=== PATIENT | male | born 1950 | race Caucasian/White ===

== ENCOUNTER 2017-03-27 22:31 | Emergency (ER) | payer MEDICARE, BC ==
[2017-03-27] MEDS ORDERED: HYDROCODONE/APAP 5/325MG TABLET PO ONE (23:05)
[2017-03-27] MEDS ORDERED: Diph,Pert(Acell),Tet Vac 0.5 ML SYR IM ONE (23:35)
--- NOTE | 2017-03-27 23:58 | Emergency Department Record ---
History of Present Illness - General Chief Complaint: Laceration(s) Stated Complaint: FELL,STICK THRU HIS ARM Time Seen by Provider: 03/27/17 22:38 Source: Patient Mode of Arrival: Ambulatory Limitations: No limitations - History of Present Illness Initial Commments: pt fell on top of wood and got 2 very large pcs of wood thru his arm. he removed one and came here w 6inch piece still in arm. Onset/Timin -: Minutes(s) Extremity Location: Left: Elbow Place: Home Context: Accidental, Fall Associated Symptoms: None, Pain, Suspect foreign body present Treatments Prior to Arrival: Bandage - [place] Coma Scale Eye Response: (4) Open spontaneously Motor Response: (6) Obeys commands Verbal Response: (5) Oriented Sree Total: 15 - Related Data Hx Tetanus Toxoid Vaccination: Yes Patient Tetanus UTD (within 5 yrs): No Home Medications Medication Instructions Recorded Confirmed Last Taken Tamsulosin HCl [Flomax] 0.4 mg PO DAILY PRN 03/27/17 03/27/17 Unknown Previous Rx's Medication Instructions Recorded Cephalexin [Keflex] 500 mg PO QID #30 cap 03/28/17 Hydrocodone/Acetaminophen [[place] 1 each PO Q6HR #10 tablet 03/28/17 5-325 Tablet] Allergies Allergy/AdvReac Type Severity Reaction Status Date / Time No Known Drug Allergies Allergy Verified 04/09/15 14:43 Travel Screening - Travel/Exposure Within Last 30 Days Have you traveled within the last 30 days?: No - Travel Symptoms Symptom Screening: None Review of Systems Reviewed: No additional complaints except as noted below Constitutional: Reports: As per HPI. Denies: Chills, Fever, Malaise, Night sweats, Weakness, Weight change Eyes: Reports: As per HPI. Denies: Eye discharge, Eye pain, Photophobia, Vision change ENT: Reports: As per HPI. Denies: Congestion, Dental pain, Ear pain, Epistaxis , Hearing loss, Throat pain Respiratory: Reports: As per HPI. Denies: Cough, Dyspnea, Hemoptysis, Stridor, Wheezes Cardiovascular: Reports: As per HPI. Denies: Arrhythmia, Chest pain, Dyspnea on exertion, Edema, Murmurs, Orthopnea, Palpitations, Paroxysmal nocturnal dyspnea, Rheumatic Fever, Syncope Endocrine: Reports: As per HPI. Denies: Fatigue, Heat or cold intolerance, Polydipsia, Polyuria Gastrointestinal: Reports: As per HPI. Denies: Abdominal pain, Constipation, Diarrhea, Hematemesis, Hematochezia, Melena, Nausea, Vomiting Genitourinary: Reports: As per HPI. Denies: Dysuria, Frequency, Hematuria, Incontinence, Retention, Testicular pain, Testicular mass, Urgency Musculoskeletal: Reports: As per HPI. Denies: Arthralgia, Back pain, Gout, Joint swelling, Myalgia, Neck pain Skin: Reports: As per HPI. Denies: Bruising, Change in color, Change in hair/ nails, Lesions, Pruritus, Rash Neurological: Reports: As per HPI. Denies: Abnormal gait, Confusion, Headache, Numbness, Paresthesias, Seizure, Tingling, Tremors, Vertigo, Weakness Psychiatric: Reports: As per HPI. Denies: Anxiety, Auditory hallucinations, Depression, Homicidal thoughts, Suicidal thoughts, Visual hallucinations Hematological/Lymphatic: Reports: As per HPI. Denies: Anemia, Blood Clots, Easy bleeding, Easy bruising, Swollen glands Past Medical History - SOCIAL HISTORY Smoking Status: Never smoker Alcohol Use: Heavy Drug Use: None - RESPIRATORY Hx Respiratory Disorders: No - CARDIOVASCULAR Hx Cardio Disorders: No - NEURO Hx Neuro Disorders: No - GI Hx GI Disorders: No - Hx Genitourinary Disorders: Yes Hx Prostate Problems: Yes (BPH) - ENDOCRINE Hx Endocrine Disorders: No - MUSCULOSKELETAL Hx Musculoskeletal Disorders: No - PSYCH Hx Psych Problems: No - HEMATOLOGY/ONCOLOGY Hx Hematology/Oncology Disorders: No Family Medical History Any Significant Family History?: Yes Hx Alcohol Use: Father Hx Cancer: Mother, Brother/Sister *Cancer Comment: colon/gastric, brain Hx Heart Disease: Father *Heart Comment: [place] Physical Exam - General General Appearance: Alert, Oriented x3, Cooperative, Mild distress - Head Head exam: Normal inspection - Eye Eye exam: Normal appearance, PERRL, EOMI Pupils: Normal accommodation - ENT ENT exam: Normal exam, Mucous membranes moist, Normal external ear exam, Normal orophraynx Ear exam: Normal external inspection. negative: External canal tenderness Nasal Exam: Normal inspection. negative: Discharge, Sinus tenderness Mouth exam: Normal external inspection, Tongue normal Teeth exam: Normal inspection. negative: Dental caries Throat exam: Normal inspection. negative: Tonsillar erythema, Tonsillar exudate - Neck Neck exam: Normal inspection, Full ROM. negative: Tenderness - Respiratory Respiratory exam: Normal lung sounds bilaterally. negative: Respiratory distress - Cardiovascular Cardiovascular Exam: Regular rate, Normal rhythm, Normal heart sounds - GI/Abdominal GI/Abdominal exam: Soft, Normal bowel sounds. negative: Tenderness - Rectal Rectal exam: Deferred - exam: Deferred - Extremities Extremities exam: Normal inspection, Full ROM, Normal capillary refill. negative: Tenderness Image of Full Body: 1 - 3 lacerations. 1-7cm v shapes 2-4cm w large stick running through it 3- 2cm entrance lac for other fb that was already removed - Back Back exam: Reports: Normal inspection, Full ROM. Denies: Muscle spasm, Rash noted, Tenderness - Neurological Neurological exam: Alert, CN II-XII intact, Normal gait, Oriented X3 - Psychiatric Psychiatric exam: Normal affect, Normal mood - Skin Skin exam: Dry, Intact, Normal color, Warm Course Vital Signs 03/27/17 22:38 Temperature 97.9 F Pulse Rate [ 81 Pulse Ox Probe] Respiratory 20 Rate Blood Pressure 165/102 [Right Arm] Pulse Ox 97 - Reevaluation(s) Reevaluation #1: 03/28/17 00:14 large fb removed . wound closed loosely due to potential for infection Procedures - Foreign Body Removal Ear Foreign Body Removal Technique: Instrumentation Disposition Disposition: Discharge Clinical Impression: Foreign body (FB) in soft tissue Lacerations of multiple sites of left arm Qualifiers: Encounter type: initial encounter Qualified Code(s): S41.112A - Laceration without foreign body of left upper arm, initial encounter Disposition: Home, Self-Care Condition: (1) Good Instructions: Laceration (ED), Soft Tissue Foreign Body (ED) Additional Instructions: follow up with family doctor. return sooner if worse. stitches out in 12-14 days Prescriptions: Hydrocodone/Acetaminophen [[place] 5-325 Tablet] 1 each PO Q6HR #10 tablet Cephalexin [Keflex] 500 mg PO QID #30 cap Forms: Patient Portal Access Quality - Quality Measures Quality Measures: N/A - Blood Pressure Screening Does Patient Have Any of the Following: No Blood Pressure Classification: Hypertensive Reading Systolic Measurement: 165 Diastolic Measurement: 102 Screening for High Blood Pressure: < First Hypertensive BP, F/U Documented > [ [id number]] First Hypertensive Follow-up Interventions: Follow-up with rescreen GT 1 day and LT 4 weeks. Laceration - Other - Time Out Informed consent:: Completed under emergency circumstance & prohibited informed consent Confirmed first & last name, , procedure, correct site?: Yes Start Date:: 03/27/17 Start Time:: 23:15 - Location Location of laceration:: Left Laceration located on:: Arm Length of laceration:: 6 Length of laceration:: cm - Clean and Prep Laceration cleaning method:: Cleansed, Copious Irrigation, Extensive Cleaning, Removal of Particular Matter Laceration cleaning agent:: Normal Saline, Shur Clens - Local Anesthetic Lidocaine used:: 1% Lidocaine dose:: 2 mL - Procedural Detail Tissue detail:: Torn, Devitalized Foreign body in the wound?: Yes Undermining was preformed?: No Stent applied?: No [place] applied?: No Skin suture pattern:: Interrupted Suture material/size:: 4-0: Nylon Number of skin sutures:: 9 (loosely closed due to contamination) Neurovascular intact?: Yes - Post Procedural Detail Complications:: Yes (fbs) Procedure Tolerated by Patient:: Well Laceration - Other - Time Out Confirmed first & last name, , procedure, correct site?: Yes Start Date:: 03/27/17 Start Time:: 23:45 - Location Location of laceration:: Left Laceration located on:: Arm Length of laceration:: 4 Length of laceration:: cm - Clean and Prep Laceration cleaning method:: Cleansed, Copious Irrigation, Extensive Cleaning, Removal of Particular Matter Laceration cleaning agent:: Normal Saline - Procedural Detail Skin suture pattern:: Interrupted Suture material/size:: 5-0: Nylon Number of skin sutures:: 2 Neurovascular intact?: Yes - Post Procedural Detail Complications:: Yes (6 inch fb removed) Procedure Tolerated by Patient:: Well
[2017-03-28] MEDS ORDERED: HYDROCODONE/APAP 5/325MG TABLET PO ONE (00:06)
[2017-03-28] MEDS ORDERED: CEPHALEXIN 500 MG CAPSULE PO STA (00:06)
--- NOTE | 2017-03-29 07:15 | RADIOLOGY REPORT ---
EXAM: LEFT ELBOW HISTORY: PAIN. TECHNIQUE: Three views of the left elbow were performed. FINDINGS: No evidence of fracture or dislocation. There is soft tissue swelling over the olecranon process. IMPRESSION: NO OSSEOUS ABNORMALITY. JOB NUMBER: [id number] MTDD
== END 2017-03-28 00:33 | disposition home or self-care (01) ==
LOC: ER 22:31
DX: S51.022A Laceration with foreign body of left elbow, initial encounter (principal); W45.8XXA Other foreign body or object entering through skin, initial encounter; Y92.009 Unspecified place in unspecified non-institutional (private) residence as the place of occurrence of the external cause
CPT/HCPCS: 12032; 90715; 96372; 99283; 99284